=== PATIENT | male | born 1970 | race Caucasian/White ===

== ENCOUNTER → 2016-09-16 | Day surgery (SDC) | payer BC ==
[~2016-09-16] MED LIST: ASPIRIN EC 325 MG TAB PO ONE; DIAZEPAM 5 MG TAB ONE; DIAZEPAM 5 MG TAB PO ONE; ETOMIDATE 40 MG/20 ML INJ ONE; FAMOTIDINE 20 MG TAB ONE; FAMOTIDINE 20 MG TAB PO ONE; HYDROCODONE/APAP 5/325 TAB ONE; IOPAMIDOL (ISOVUE-370) 150 ML BTL IV ONE; LIDOCAINE 1% 30 ML SDV ONE; MIDAZOLAM 2 MG/2 ML VIAL ONE; NS 1,000 ML IV ONE; VERAPAMIL 5 MG/2 ML VIAL ONE; diphenhydrAMINE 25 MG CAP PO ONE; fentaNYL 100 MCG/2 ML INJ ONE
--- NOTE | 2016-09-16 09:00 | CPEKG ---
Heart Rate: 74 RR Interval: 811 P-R Interval: 152 QRSD Interval: 96 QT Interval: 392 QTC Interval: 435 P [place]: 54 QRS [place]: 55 T Wave [place]: 44 EKG Severity - ABNORMAL ECG - EKG Impression: SINUS RHYTHM EKG Impression: LEFT VENTRICULAR HYPERTROPHY EKG Impression: PROBABLE INFERIOR INFARCT, OLD Electronically Signed By: Mark Roberts 16-Sep-2016 17:06:56
[2016-09-16 09:20] LABS: % IMMATURE GRANULYOCYTES 0.4 % (0.0-1.1); ABSOLUTE IMMATURE GRANULOCYTES 0.02 10^3/uL (0.00-0.10); ADD DIFF? NO; ADD MORPH? NO; ADD SCAN? NO; ATYPICAL LYMPHOCYTE FLAG 10 (0-99); FRAGMENT RBC FLAG 10 (0-99); HEMATOCRIT 43.9 % (40.0-51.0); HEMOGLOBIN 15.8 g/dL (13.7-17.5); LEFT SHIFT FLG 0 (0-99); LIPEMIA HEMOLYSIS FLAG 90 (0-99); MEAN CELL HEMOGLOBIN 32.5 pg (27.9-34.1); MEAN CELL VOLUME 90.3 fL (81.5-99.8); MEAN PLATELET VOLUME 9.5 fL (8.7-11.7); PLATELET CLUMPS FLAG 20 (0-99); PLATELET COUNT 203 10^3/uL (150-400); RED BLOOD CELL COUNT 4.86 10^6/uL (4.40-6.38)
[2016-09-16 09:28] LABS: INR 0.93 (0.83-1.16); PROTIME(PATIENT) 12.4 SEC (12.0-15.0)
[2016-09-16 09:43] LABS: ANION GAP 14 mEq/L (8-16); CALCIUM 9.5 mg/dL (8.5-10.4); CARBON DIOXIDE 22 mEq/l (22-31); CHLORIDE 103 mEq/L (97-110); CHOLESTEROL 246 mg/dL (140-200); CHOLESTEROL/HDL RATIO 6.31 RATIO (1.00-4.97); CREATININE 0.7 mg/dL (0.7-1.3); GLOMERULAR FILTRATION RATE > 60; GLUCOSE 93 mg/dL (70-100); HIGH DENSITY LIPOPROTEIN 39 mg/dL (40-65); LDL/HDL RATIO 3.56 RATIO (1.00-3.64); LOW DENSITY LIPOPROTEIN 139 mg/dL (70-100); NON-HIGH DENSITY LIPOPROTEIN 207 mg/dL (90-129); POTASSIUM 4.4 mEq/L (3.5-5.2); SODIUM 139 mEq/L (134-144); TRIGLYCERIDE 341 mg/dL (40-150); VERY LOW DENSITY LIPOPROTEINS 68 mg/dL (8-25)
--- NOTE | 2016-09-16 11:57 | PDDXCAT ---
Diagnostic Cath Note - . Date: 09/16/16 Chief Nurse Executive: Jonathan Indication: other (CCS Class IV Angina) - Procedure Access: left wrist (A plethysmography trace assisted Hermilo's Test was used to document dual artery supply to the hand and index finger prior to access.) Procedure: left heart catheterization, coronary angiography, left ventriculogram - Materials Left Heart Cath size: 5F Left Heart Cath materials: JL3.5, JR4.0, pigtail - Findings-Left Heart Catheterization LM: 6 mm in size. Bifurcates into an LAD and circumflex system. LAD: 3 mm in size. There is no evidence of flow-limiting disease with SHANELL III flow throughout. Maximal luminal stenosis of 25% with SHANELL III flow. Distreaming is present in the proximal LAD. LCX: 3 mm in size. Gives rise to a large obtuse marginal branch. There is no evidence of flow-limiting disease with SHANELL III flow throughout. RCA: 5 mm in size. Dominant (gives rise to PDA and PLV branches). There is no evidence of flow-limiting disease with SHANELL III flow throughout. EDP: 10 mmHg LVEF: 65% Wall motion: No wall motion abnormalities were identified on LVG. The visualized protion of the thoracic aorta revealed three sinuses of Valsalva. There was no evidence of aneurysm or dissection. Complications: None Estimated blood loss: <50ml Closure method: TR Band Assessment: [place] vessel coronary artery disease (maximum luminal stenosis of 25% in the mid LAD with SHANELL III flow) without flow-limiting obstruction or abnormality that would explain the patient's resting chest pain. The patient had normal wall motion and ejection fraction on LVG. I ordered a PA and lateral chest x-ray following the procedure. The chest x-ray revealed a normal variant pulmonary anatomy (right-sided azygos lobe) with some healed rib fractures, but no abnormality that would explain his resting chest pain. Vipul should continue a low carbohydrate, low alcohol diet. I would also like to place him on a daily statin regimen (Rosuvastatin 10 mg daily) as an outpatient to further manage his cholesterol and prevent the progression of plaque formmation and inflammation. Patient Problems: Problems Problem Status Diagnosed Gout flare Acute
--- NOTE | 2016-09-16 17:44 | DX ---
PA and Lateral Chest History: Chest pain. Findings: The heart and mediastinum are normal. Pulmonary vascularity is normal. The lungs are clear. Incidentally, an azygos lobe is noted. There is no pleural fluid. A pneumothorax is not identified. Impression: No significant radiographic abnormality. Specifically, a source for chest pain is not mario ntified.
== END | disposition home or self-care (01) ==
LOC: FCATH 08:36
PROVIDERS: ATTEND Internal Medicine Cardiovascular Disease
PROC: 4A023N7 Measurement of Cardiac Sampling and Pressure, Left Heart, Percutaneous Approach (ICD-10-PCS; principal; 2016-09-16)
PROC: B2151ZZ Fluoroscopy of Left Heart using Low Osmolar Contrast (ICD-10-PCS; 2016-09-16)
PROC: B2111ZZ Fluoroscopy of Multiple Coronary Arteries using Low Osmolar Contrast (ICD-10-PCS; 2016-09-16)
DX: R07.9 Chest pain, unspecified (principal); E78.5 Hyperlipidemia, unspecified; R94.31 Abnormal electrocardiogram [ECG] [EKG]; Q33.1 Accessory lobe of lung; I10 Essential (primary) hypertension; Z87.891 Personal history of nicotine dependence
CPT/HCPCS: J1644; J2250; J3010; Q9967

== ENCOUNTER 2016-10-03 14:06 | Inpatient (IN) | payer OTHER, BC ==
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
[2016-10-03] MEDS ORDERED: ONDANSETRON 4 MG/2 ML VIAL IVP ONE (14:47)
[2016-10-03] MEDS ORDERED: HYDROmorphONE/DILAUDID 1 MG/ML SYR IVP ONE (14:47)
[2016-10-03] MEDS ORDERED: NS 1,000 ML IV ONE (14:47)
[2016-10-03] MEDS ORDERED: HYDROmorphONE/DILAUDID 1 MG/ML SYR ONE (14:49)
[2016-10-03] MEDS ORDERED: ONDANSETRON 4 MG/2 ML VIAL ONE (14:49)
[2016-10-03] MEDS ORDERED: ONDANSETRON DISINTEGRATING 4 MG TAB PO PRN (15:29)
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
--- NOTE | 2016-10-03 16:43 | MR ---
MRI Lumbar Spine Without Contrast History: Compression fracture L1. Back pain. Comparison: Outside CT from [facility], same day. Technique: MRI is performed of the lumbar spine using a 1.5 Natacha MRI system. Sagittal and axial imag ing was obtained with standard imaging sequences. Findings: There is compression fracture of L1. Height loss anteriorly is approximately 30% and art therapy specialist iorly 25%. There is posterior buckling of the posterior cortex into the spinal canal, 5 mm. Bone artie ow edema is seen extending into the pedicle bilaterally, left greater than right. There is a similar appearance to the comparison CT. No evidence for epidural hematoma. The conus is visualized at the le jennifer of T12-L1. No other acute compression fracture is visualized. Minimal chronic anterior wedge comp ression deformity is seen of T12. T12-L1 demonstrates the mild effacement of the anterior thecal sac from the posterior bowing of the s uperoposterior cortex of the L1 vertebral body. No significant neural foraminal encroachment. L1-L2 level demonstrates no significant encroachment. L2-L3 level unremarkable. L3-L4 level demonstrates a mild broad-based annular bulge. Mild facet arthropathy is seen bilaterally . This is causing mild spinal canal and bilateral neural foraminal narrowing. L4-L5 level demonstrates a mild broad-based annular bulge and facet arthropathy, causing mild spinal canal and bilateral neural foraminal narrowing. L5-S1 level unremarkable. Impression: 1. Moderate compression fracture of L1 vertebral body, stable from the comparison outside CT from [facility]. There is 5 mm of posterior displacement of the posterior cortex into the spi nal canal, causing mild central spinal canal narrowing and just touching the anterior margin of the c onus at this level. 2. Mild degenerative disk and degenerative joint disease of L3-L4 and L4-L5.
[2016-10-03] MEDS: METHOCARBAMOL 750 MG TAB PO PRN (18:12)
[2016-10-03] MEDS: oxyCODONE IR 5 MG TAB PO PRN (18:12)
[2016-10-03] MEDS: LR 1,000 ML IV SCH (21:00)
[2016-10-03] MEDS ORDERED: NALOXONE HCL 0.4 MG/ML INJ IVP PRN (21:17)
[2016-10-03] MEDS: HYDROmorphONE/DILAUDID 6 MG/30 ML PCA IV PRN (21:23)
[2016-10-04] MEDS: METHOCARBAMOL 750 MG TAB PO PRN ×2 (03:45→13:42)
[2016-10-04] MEDS: HYDROmorphONE/DILAUDID 6 MG/30 ML PCA IV PRN (06:27)
[2016-10-04] MEDS: LR 1,000 ML IV SCH (07:45)
[2016-10-04] MEDS: HYDROCODONE/APAP 5/325 TAB PO PRN ×3 (07:50→21:09)
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
[2016-10-04] MEDS: oxyCODONE IR 5 MG TAB PO PRN ×2 (09:50→18:42)
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
[2016-10-04] MEDS ORDERED: DIAZEPAM 5 MG TAB PO PRN (14:43)
[2016-10-04] MEDS: ALLOPURINOL 300 MG TAB PO SCH (16:43)
[2016-10-04] MEDS: ASCORBIC ACID 500 MG TAB PO SCH (16:43)
[2016-10-04] MEDS: ENOXAPARIN 40 MG/0.4 ML SYR SC SCH (16:43)
[2016-10-04] MEDS: ASPIRIN 81 MG CHEWABLE TAB PO SCH (16:43)
[2016-10-04] MEDS: GEMFIBROZIL 600 MG TAB PO SCH (16:44)
[2016-10-05] MEDS: METHOCARBAMOL 750 MG TAB PO PRN ×3 (02:56→19:39)
[2016-10-05] MEDS: HYDROCODONE/APAP 5/325 TAB PO PRN ×4 (02:56→18:33)
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
[2016-10-05] MEDS ORDERED: MAGNESIUM HYDROXIDE 30 ML UDCUP PO PRN (09:18)
[2016-10-05] MEDS ORDERED: BISACODYL 10 MG SUPP PR PRN (09:18)
[2016-10-05] MEDS ORDERED: POLYETHYLENE GLYCOL 3350 17 GM PKT PO PRN (09:18)
[2016-10-05] MEDS ORDERED: LACTULOSE 20 GM/30 ML UDCUP PO PRN (09:18)
[2016-10-05] MEDS: ENOXAPARIN 40 MG/0.4 ML SYR SC SCH (09:31)
[2016-10-05] MEDS: ASPIRIN 81 MG CHEWABLE TAB PO SCH (09:31)
[2016-10-05] MEDS: ASCORBIC ACID 500 MG TAB PO SCH (09:31)
[2016-10-05] MEDS: ALLOPURINOL 300 MG TAB PO SCH (09:31)
[2016-10-05] MEDS: GEMFIBROZIL 600 MG TAB PO SCH (09:31)
[2016-10-05] MEDS: KETOROLAC 15 MG/1 ML SDV IVP SCH ×3 (11:17→23:26)
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
[2016-10-05] MEDS: SENNOSIDES/DOCUSATE SODIUM TAB PO SCH (19:39)
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
[2016-10-05 23:41] VITALS: RESP 16
[2016-10-06] MEDS: HYDROCODONE/APAP 5/325 TAB PO PRN ×2 (03:19→11:12)
[2016-10-06] MEDS: KETOROLAC 15 MG/1 ML SDV IVP SCH ×2 (05:30→11:12)
[2016-10-06 07:14] VITALS: BP 153/90; PULSE 81; TEMP 97.9
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
[2016-10-06] MEDS: ALLOPURINOL 300 MG TAB PO SCH (08:39)
[2016-10-06] MEDS: GEMFIBROZIL 600 MG TAB PO SCH (08:39)
[2016-10-06] MEDS: ASCORBIC ACID 500 MG TAB PO SCH (08:39)
[2016-10-06] MEDS: METHOCARBAMOL 750 MG TAB PO PRN (08:39)
[2016-10-06] MEDS: ASPIRIN 81 MG CHEWABLE TAB PO SCH (08:39)
[2016-10-06] MEDS: SENNOSIDES/DOCUSATE SODIUM TAB PO SCH (08:40)
[2016-10-06] MEDS: ENOXAPARIN 40 MG/0.4 ML SYR SC SCH ×3 (08:40→11:49)
[2016-10-06 08:44] VITALS: O2SAT 92
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
== END 2016-10-06 12:54 | disposition home health service (06) | DRG 552 ==
LOC: EDUNIT# → F3N 15:59
PROVIDERS: ADMIT Surgery; ATTEND Surgery
DX: S32.011A Stable burst fracture of first lumbar vertebra, initial encounter for closed fracture (principal); M10.9 Gout, unspecified; E78.5 Hyperlipidemia, unspecified; V48.0XXA Car driver injured in noncollision transport accident in nontraffic accident, initial encounter; Y92.410 Unspecified street and highway as the place of occurrence of the external cause
CPT/HCPCS: 96374; 97116-GP; 97161-GP; 97166-GO; 97530-GO; 97530-GP; 97535-GO; J1170; J1650; J1885; J2405

== ENCOUNTER 2016-10-18 12:26 | Emergency (ER) | payer BC, OTHER ==
[2016-10-18 12:41] VITALS: BP 132/78; PULSE 91; RESP 16; TEMP 98.1; O2SAT 95
--- NOTE | 2016-10-18 13:36 | EDPHY ---
H & P Time Seen by Provider: 10/18/16 12:54 HPI/ROS: CHIEF COMPLAINT: Left calcaneus pain HISTORY OF PRESENT ILLNESS: 46-year-old male in the ER via private vehicle complaining of acute left calcaneus pain. History of lumbar fracture is currently undergoing physical therapy. 3 days ago while doing physical therapy , performing exercise and involved a band around his foot and hyper dorsiflexing his foot he felt immediate pain at the posterior calcaneus region. He has reproducible pain with palpation to the calcaneus. He is able to plantar flex albeit with pain. Reproducible pain with weight-bearing. No direct trauma or fall. No fall from height. No peripheral edema or discoloration. PHYSICAL EXAM (Prior to examination, patient consented to physical exam, hands were washed and my usual and customary physical exam procedures followed) 1) GENERAL: Well-developed, well-nourished, alert and oriented. Appears to be in no acute distress. 2) HEAD: Normocephalic 3) HEENT: Pupils equal, round, reactive to light bilaterally. 4) LUNGS: Breathing comfortably. 5) MUSCULOSKELETAL: Point tenderness over the posterior calcaneus. No step- off. No crepitus. No discoloration. proximal tibia and fibula nontender .5th MT nontender negative Reyes test, compartments soft 6) SKIN: no discoloration 7) VASCULAR: DP,PT pulses and cap refill present and brisk DIFFERENTIAL DIAGNOSIS: in no particular order including but not limited to Achilles tendon rupture, DVT, fracture, sprain, compartment syndrome Xray of the left foot and ankle interpreted by myself: no definitive acute osseous abnormality Procedure: Splint A Zac boot splint was applied by ER operations and maintenance technician. After application of the splint I returned and re-examined the patient. The splint was adequately immobilizing the joint and distal to the splint the patient's circulation and sensation were intact. Patient shows no signs of compartment syndrome. Was given orthopedic precautions. Smoking Status: Former smoker Constitutional: Initial Vital Signs Temperature (C) 36.7 C 10/18/16 12:38 Heart Rate 91 10/18/16 12:38 Respiratory Rate 16 10/18/16 12:38 Blood Pressure 132/78 H 10/18/16 12:38 O2 Sat (%) 95 10/18/16 12:38 Allergies/Adverse Reactions: No Known Allergies Allergy (Verified 10/18/16 12:41) Home Medications: Medication Instructions Recorded Hydrocodone/Acetaminophen 10/18/16 [Hydrocodon-Acetaminophn 10325] Methocarbamol 10/18/16 SENEXON-S TABLET 10/18/16 MDM/Departure - MDM ED Course/Re-evaluation: Doubt DVT. He is neurovascular intact. Discussed possibility of Achilles tendon injury. Recommended follow up with Orthopedics. Placed in [facility]. He has no evidence of compartment syndrome. Usual and customary orthopedic precautions instructions provided - Depart Disposition: Home, Routine, Self-Care Clinical Impression: Achilles tendinitis Qualifiers: Laterality: left Qualifier Code: (M76.62) Achilles tendinitis, left leg Condition: Good Instructions: Achilles Tendinitis (ED) Additional Instructions: Return to the ER immediately if you experience discoloration, have worsening pain, numbness, tingling, or any other symptoms that concern you. If you received x-rays in the emergency department today, be advised, that ligamentous , tendon, muscular, and other non-bony injury cannot be fully ruled out. Try to keep your affected extremity elevated above the level of your chest, and keep cold packs on the affected area, for the next 48 hours. Referrals: Wiliam Hamilton MD [Medical Doctor] - 2-3 days, call for appt. (Dr. Hamilton is orthopedic doctor)
--- NOTE | 2016-10-18 16:59 | DX ---
Left ankle, three views. History: PAIN Findings: Ankle mortice is intact. No fracture or joint effusion. Soft tissues appear unremarkable . Impression: Negative left ankle series.
--- NOTE | 2016-10-18 17:00 | DX ---
Left foot, 3 views. History: PAIN Comparison examination:none available Findings: No fracture identified. Normal alignment. Joint spaces are maintained. Soft tissues adarsh ear unremarkable. Impression: Negative left foot radiographs.
== END 2016-10-18 14:14 | disposition home or self-care (01) ==
DX: M76.62 Achilles tendinitis, left leg (principal); Z87.891 Personal history of nicotine dependence

== ENCOUNTER 2018-11-29 10:48 | Emergency (ER) | payer BC ==
[2018-11-29] MEDS ORDERED: NS 1,000 ML IV ONE (11:14)
--- NOTE | 2018-11-29 11:22 | EDPHY ---
H & P Stated Complaint: ruc abd pain radiating into back saw pcp sent to r/o gallbladder issues Time Seen by Provider: 11/29/18 11:12 HPI/ROS: HPI: This is a 48-year-old male who presents with Chief Complaint: Right flank right upper quadrant pain Location: Right flank, right upper quadrant Quality: Pain Duration: Several weeks Signs and Symptoms: no fever, no nausea, no vomiting, no hematemesis, no blood in stool, no abdominal bloating, no diarrhea, + chronic back pain, no urinary symptoms, no testicular/groin pain, no indigestion, no chest pain, no shortness of breath Timing: Acute, worsening over the last week Severity: Moderate Context: Patient presents at the urging of his primary care provider to come to the emergency room to evaluate his gallbladder. He reports that over the last several months he has had right flank and right upper quadrant pain that occurs once or twice per week. Last week patient went on 2 mi hike and had some right-sided back spasms that improved over the last several days. The right upper quadrant, right flank pain persists. Patient has a history of back surgery in September 2018 and takes oxycodone twice daily. No history of kidney stones and denies hematuria, urinary frequency, urinary hesitancy, urinary urgency. Patient was drinking alcohol quite consistently after his L1 burst fracture and was diagnosed with alcoholic pancreatitis last year. Since his diagnosis he has not drank alcohol since. Denies indigestion, fatty or fried food intolerances. Eating and drinking without difficulty. Modifying Factors: See above Comment: ROS: A comprehensive 10 system review of systems is otherwise negative aside from elements mentioned in the history of present illness. MEDICAL/SURGICAL/SOCIAL HISTORY: Medical history: Alcoholic pancreatitis, GOUT, L1 BURST FRACTURE, HTN Surgical history: Back surgery in September 2018, nasal surgery, knee surgery, tonsillectomy Social history: No longer drinks alcohol. Current every day smoker Family history noncontributory. CONSTITUTIONAL: Extremely well-appearing, polite and cooperative middle-aged white male, awake and alert, no obvious distress HEENT: Atraumatic and normocephalic, PERRL, EOMI. Nares patent; no rhinorrhea; no nasal mucosal edema. Tympanic membranes clear. Oropharynx clear, no exudate and moist pink mucosa. Airway patent. No lymphadenopathy. No meningismus. Cardiovascular: Normal S1/S2, regular rate, regular rhythm, without murmur rub or gallop. PULMONARY/CHEST: Symmetrical and nontender. Clear to auscultation bilaterally. Good air movement. No accessory muscle usage. ABDOMEN: Soft, nondistended, moderate right upper quadrant tenderness, no rebound, no guarding, no peritoneal signs, no masses or organomegaly. No CVAT. EXTREMITIES: 2/2 pulses, strength 5/5, no deformities, no clubbing, no cyanosis or edema. NEUROLOGICAL: no focal neuro deficits. GCS 15. SKIN: Warm and dry, no erythema. no rash. Good capillary refill. Source: Patient Exam Limitations: No limitations - Personal History Current Tetanus Diphtheria and Acellular Pertussis (TDAP): Yes Tetanus Vaccine Date: 2006 - Medical/Surgical History Hx Asthma: No Hx Chronic Respiratory Disease: No Hx Diabetes: No Hx Cardiac Disease: No Hx Renal Disease: No Hx Cirrhosis: No Hx Alcoholism: No Hx HIV/AIDS: No Hx Splenectomy or Spleen Trauma: No Other PMH: GOUT, TONSILS, KNEE SURG, NASAL SURG, L1 BURST FRACTURE, HTN - Social History Smoking Status: Current some day smoker Constitutional: Initial Vital Signs Temperature (C) 36.8 C 11/29/18 11:02 Heart Rate 92 11/29/18 11:02 Respiratory Rate 17 11/29/18 11:02 Blood Pressure 109/84 H 11/29/18 11:02 O2 Sat (%) 96 11/29/18 11:02 O2 Delivery Mode Room Air Allergies/Adverse Reactions: No Known Allergies Allergy (Verified 11/29/18 11:01) Home Medications: Medication Instructions Recorded Allopurinol 07/31/18 Cyclobenzaprine [Flexeril 10 MG 10 mg PO TID PRN #15 tab 07/31/18 (*)] Lisinopril 07/31/18 Rosuvastatin Calcium 07/31/18 oxyCODONE HCL/ACETAMINOPHEN 1 each PO Q4-6PRN PRN #7 tablet 07/31/18 [Percocet 5-325 mg Tablet] Medical Decision Making - Diagnostics Imaging Results: Imaging Impressions Abdomen Ultrasound 11/29/18 11:15 Impression: 1. No acute findings. 2. Decompressed grossly unremarkable gallbladder. 3. Borderline hepatomegaly with possible hepatic steatosis. Findings discussed with Maria Victoria Álvarez 11/29/2018 at 12:15. ED Course/Re-evaluation: Vital signs reviewed and stable upon arrival. No systemic signs. IV access, laboratory studies, urinalysis, right upper quadrant ultrasound ordered Given 1 L normal saline, IV morphine 4 mg given 1216: Called by radiologist who advised that Right upper quadrant ultrasound shows fatty liver, but no gallbladder stones, no cholecystitis, no common bile duct dilatation, no signs of pancreatitis. Laboratory studies reviewed. No signs of leukocytosis/anemia/platelet dysfunction/OCSAR/elevated LFTs/electrolyte imbalance/pancreatitis. Urinalysis is unremarkable. Doubt kidney stone. Suspect this is related to his back with radiculopathy versus muscle strain. This patient was seen under the supervision of my secondary supervising physician. I evaluated care for this patient with attending. Differential Diagnosis: Abdominal pain including but not limited to appendicitis, cholecystitis, gastritis and urinary tract infection. - Data Points Laboratory Results: Laboratory Results 11/29/18 11:20 11/29/18 11:20 11/29/18 11/29/18 11/29/18 12:10 11:20 11:20 WBC 5.54 10^3/uL 10^3/uL (3.80-9.50) RBC 4.60 10^6/uL 10^6/uL (4.40-6.38) Hgb 13.4 g/dL L g/dL (13.7-17.5) Hct 41.0 % % (40.0-51.0) MCV 89.1 fL fL (81.5-99.8) MCH 29.1 pg pg (27.9-34.1) MCHC 32.7 g/dL g/dL (32.4-36.7) RDW 13.2 % % (11.5-15.2) Plt Count 190 10^3/uL 10^3/uL (150-400) MPV 9.8 fL fL (8.7-11.7) Neut % (Auto) 55.0 % % (39.3-74.2) Lymph % (Auto) 32.3 % % (15.0-45.0) Hubbard % (Auto) 8.1 % % (4.5-13.0) Eos % (Auto) 4.0 % % (0.6-7.6) Baso % (Auto) 0.4 % % (0.3-1.7) Nucleat RBC Rel Count 0.0 % % (0.0-0.2) Absolute Neuts (auto) 3.05 10^3/uL 10^3/uL (1.70-6.50) Absolute Lymphs (auto) 1.79 10^3/uL 10^3/uL (1.00-3.00) Absolute Monos (auto) 0.45 10^3/uL 10^3/uL (0.30-0.80) Absolute Eos (auto) 0.22 10^3/uL 10^3/uL (0.03-0.40) Absolute Basos (auto) 0.02 10^3/uL 10^3/uL (0.02-0.10) Absolute Nucleated RBC 0.00 10^3/uL 10^3/uL (0-0.01) Immature Gran % 0.2 % % (0.0-1.1) Immature Gran # 0.01 10^3/uL 10^3/uL (0.00-0.10) Sodium 137 mEq/L mEq/L (135-145) Potassium 3.9 mEq/L mEq/L (3.5-5.2) Chloride 102 mEq/L mEq/L (97-110) Carbon Dioxide 23 mEq/l mEq/l (22-31) Anion Gap 12 mEq/L mEq/L (6-14) BUN 10 mg/dL mg/dL (7-23) Creatinine 0.6 mg/dL L mg/dL (0.7-1.3) Estimated GFR > 60 Glucose 114 mg/dL H mg/dL (70-100) Calcium 9.6 mg/dL mg/dL (8.5-10.4) Total Bilirubin 0.7 mg/dL mg/dL (0.1-1.4) Conjugated Bilirubin 0.4 mg/dL mg/dL (0.0-0.5) Unconjugated Bilirubin 0.3 mg/dL mg/dL (0.0-1.1) AST 25 IU/L IU/L (17-59) ALT 34 IU/L IU/L (21-72) Alkaline Phosphatase 75 IU/L IU/L (38-126) Total Protein 6.9 g/dL g/dL (6.3-8.2) Albumin 4.3 g/dL g/dL (3.5-5.0) Lipase 114 IU/L IU/L (23-300) Urine Color YELLOW Urine Appearance CLEAR Urine pH 6.0 (5.0-7.5) Ur Specific [place] 1.017 (1.002-1.030) Urine Protein NEGATIVE (NEGATIVE) Urine Ketones NEGATIVE (NEGATIVE) Urine Blood NEGATIVE (NEGATIVE) Urine Nitrate NEGATIVE (NEGATIVE) Urine Bilirubin NEGATIVE (NEGATIVE) Urine Urobilinogen NEGATIVE EU EU (0.2-1.0) Ur Leukocyte Esterase NEGATIVE (NEGATIVE) Urine Glucose NEGATIVE (NEGATIVE) Medications Given: Discontinued Medications Sodium Chloride (Ns) 1,000 mls @ 0 mls/hr IV EDNOW ONE; Wide Open PRN Reason: Protocol Stop: 11/29/18 11:15 Last Admin: 11/29/18 11:24 Dose: 1,000 mls Morphine Sulfate (Morphine) 4 mg IVP EDNOW ONE Stop: 11/29/18 11:27 Last Admin: 11/29/18 11:35 Dose: 4 mg Departure - Departure Disposition: Home, Routine, Self-Care Clinical Impression: Fatty liver, alcoholic, Spasm of thoracic back muscle, Thoracic radiculopathy Condition: Good Instructions: Liver Disease Diet (DC), Thoracic Pain (ED) Additional Instructions: Continue to take pain medications as prescribed. Follow-up with primary care provider to see if an MRI of the thoracic spine is indicated. Referrals: KATIE VERGARA [Primary Care Provider] - As per Instructions
[2018-11-29 11:30] LABS: PLATELET COUNT 190 10^3/uL (150-400)
[2018-11-29 12:42] VITALS: BP 115/70
== END 2018-11-29 12:49 | disposition home or self-care (01) ==
DX: K76.0 Fatty (change of) liver, not elsewhere classified (principal); F10.99 Alcohol use, unspecified with unspecified alcohol-induced disorder; R16.0 Hepatomegaly, not elsewhere classified; M62.830 Muscle spasm of back; M54.16 Radiculopathy, lumbar region
CPT/HCPCS: 96374; J2270